=== PATIENT | female | born 1970 | race Caucasian/White ===

== ENCOUNTER 2017-11-19 18:14 | Inpatient (IN) ==
[~2017-11-19 18:14] MED LIST: Aminoglycoside Consult 1 EACH MC ONE
[2017-11-19] MEDS ORDERED: 0.9 % Sodium Chloride 1,000 ML IVC ONE (19:13)
[2017-11-19] MEDS ORDERED: Ondansetron 4 MG/2 ML VIAL IVP ONE (19:13)
[2017-11-19] MEDS ORDERED: Isovue-370 500 ML INFUS..BTL IV ONE (19:14)
[2017-11-19] MEDS ORDERED: Ketorolac 15 MG/ML VIAL IVP ONE (19:17)
--- NOTE | 2017-11-19 19:17 | Emergency Department Note ---
Disposition Clinical Impression: Pelvic pain, Tobacco use, Abscess Osteomyelitis Qualifiers: Osteomyelitis type: unspecified type Osteomyelitis location: unspecified site Qualified Code(s): M86.9 - Osteomyelitis, unspecified Disposition: Admitted As Inpatient Condition: Fair Time of Disposition: 21:55 General Adult HPI - General Chief complaint: ED Abdominal Pain Stated complaint: pelvic pain Time Seen by Provider: 11/19/17 18:29 Source: patient Mode of arrival: ambulatory Limitations: no limitations Nursing Notes Reviewed: Yes Vital Signs Reviewed: Yes - History of Present Illness HPI Narrative: 47 year old female with a history of leukemia status post bone marrow transplant at the [facility] in 2012 as well as history of hip abscess last year presents for evaluation of pelvic pain. Patient states the pain is atraumatic and is been worse over the past 3 days. Patient localized the pain started in the right lower quadrant as well as radiation across her lower abdomen. Patient also notes pelvic instability with walking and ambulation. Patient denies any falls. Patient notes night sweats but no fevers. Patient reports some nausea and vomiting. No change in bowel habits. No dysuria or hematuria. No vaginal bleeding or discharge. Patient states she is post menopausal since her transplant. Patient has not followed up with the [facility] over the past year. Patient is not on any immunosuppressive therapy. Denies chest pain or shortness of breath. Patient has a chronic cough attributed to tobacco use. Patient's been taking ibuprofen to help control the pain. Denies any abdominal surgeries. 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 Pain Scale: 9 - Related Data Home Medications Medication Instructions Recorded Confirmed No Known Home Drugs 11/19/17 11/19/17 Allergies Allergy/AdvReac Type Severity Reaction Status Date / Time No Known Allergies Allergy Verified 11/19/17 21:41 All systems ED: reviewed and negative except as stated. Constitutional: Reports: chills. Denies: fever Respiratory: Reports: cough. Denies: dyspnea Gastrointestinal: Reports: abdominal pain, nausea, vomiting. 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 - Social History Smoking Status: Current every day smoker Smokeless Tobacco Status: No Alcohol use: Reports: none Drug use: Reports: opiates, IV Drug Use, prescription drug abuse Physical Exam - General Limitations: no limitations General appearance: alert, in no apparent distress, anxious - Head Head exam: atraumatic, normocephalic, normal inspection - Eye Eye exam: Present: normal appearance, PERRL, EOMI - ENT ENT exam: normal exam - Neck Neck exam: Present: normal inspection, trachea midline - Chest Chest inspection: Present: normal inspection - Respiratory Respiratory exam: Present: normal lung sounds bilaterally. Absent: respiratory distress - Cardiovascular Cardiovascular exam: Present: regular rate, normal rhythm. Absent: systolic murmur - Abdominal Exam Abdominal exam: Present: soft, Non-Tender. Absent: distention, guarding, rebound - Extremities Exam Extremities exam: Present: normal inspection, other (Age track quiñonez of the upper extremities. No evidence of cellulitis or infection.). Absent: pedal edema - Expanded Lower Extremity Exam Hip/Pelvis exam: Present: normal inspection, full ROM. Absent: tenderness Upper leg exam: Present: normal inspection, full ROM. Absent: tenderness Knee exam: Present: normal inspection. Absent: tenderness Lower leg exam: Present: normal inspection Ankle exam: Present: normal inspection Neurovascular/Tendon exam: Present: normal capillary refill - Back Exam Back exam: Present: normal inspection, full ROM. Absent: tenderness, CVA tenderness (R), CVA tenderness (L), vertebral tenderness - Neurological Exam Neurological exam: Present: alert, oriented X3, CN II-XII intact - Skin Skin exam: Present: warm, dry, intact, normal color Course Course Narrative: Patient is nontoxic-appearing and is presenting with atraumatic hip pain. Patient denies history of recent drug use. Given the patient's history with leukemia and bone marrow transplant with a possible infection in the past the patient will get imaging of the abdomen and pelvis with IV contrast. Patient will also be given symptomatic treatment with IV fluids and antiemetics and pain control. Basic labs be obtained. Disposition pending. Looking back the patient's records it appears the patient did have cellulitis in the past but there was no defined abscess. Patient's been having chronic pain of her hips which appears in the record. - Reevaluation(s) Reevaluation #1: Patient seen and examined. Patient was updated on plan of care. Patient will be admitted to hospital service for further management of her osteomyelitis as well as intramuscular abscess. Time: 21:52 Vital Signs Temperature 98.6 F 11/19/17 18:17 Pulse Rate 112 11/19/17 18:17 Respiratory Rate 18 11/19/17 18:17 Blood Pressure 127/72 11/19/17 18:17 O2 Sat by Pulse Oximetry 98 11/19/17 18:17 Temperature 98.3 F 11/19/17 23:32 Pulse Rate 90 11/19/17 23:32 Respiratory Rate 18 11/19/17 23:32 Blood Pressure 119/69 11/19/17 23:32 O2 Sat by Pulse Oximetry 99 11/19/17 23:32 Oxygen Delivery Oxygen Delivery Room Air Medical Decision Making - MDM Narrative Medical decision making narrative: 47-year-old female present for evaluation of pelvic pain. Patient does have a history of abscess within her pelvis as well as a bone infection. Patient workup in the emergency department is significant for osteomyelitis as well as intramuscular abscess. Patient has had stable vital signs. Normal lactate. Given the patient's osteomyelitis as well as potential abscess patient will be admitted to the hospital service for further evaluation and management. Patient 's pain was addressed in the emergency department. Patient was started on the most appropriate antibiotics. - Lab Data Lab results reviewed: Yes I reviewed the patient's lab results. Result diagrams: 11/20/17 01:18 11/20/17 01:18 Lab Results 11/19/17 11/19/17 11/19/17 Range/Units 19:44 19:44 19:44 WBC 6.5 (4.3-11.1) K/mcL RBC 4.21 (3.82-4.97) M/mcL Hgb 13.1 (11.5-15.4) g/dL Hct 38.5 (35.3-44.9) % MCV 91.4 (83.0-100.0) fL MCH 31.1 (28.0-33.3) pg MCHC 34.0 (31.6-35.5) g/dL RDW 14.2 (11.5-14.5) % Plt Count 231 (140-400) K/mcL MPV 9.0 L (9.4-12.4) fL Immature Gran % 0.3 (0-4) % Seg Neutrophils % 70.7 % Lymphocytes % 19.6 % Monocytes % 6.9 % Eosinophils % 2.0 % Basophils % 0.5 % Neutrophils # 4.6 (1.6-8.9) K/mcL Lymphocytes # 1.3 (0.6-4.6) K/mcL Monocytes # 0.5 (0.0-1.3) K/mcL Eosinophils # 0.1 (0.0-0.6) K/mcL Basophils # 0.0 (0.0-0.2) K/mcL Sodium 132 L (136-145) mEq/L Potassium 4.0 (3.5-5.1) mEq/L Chloride 101 (98-107) mEq/L Carbon Dioxide 25 (23-29) mEq/L BUN 15 (6-20) mg/dL Creatinine 0.78 (0.60-1.20) mg/dL Est GFR ( Amer) > 60 (> 60) Est GFR (Non-Af Amer) > 60 (> 60) BUN/Creatinine Ratio 19 (6-26) Glucose 114 H (70-105) mg/dL Calculated Osmolality 276 L (280-300) Lactic Acid 0.8 (0.5-2.2) mmol/L Calcium 9.7 (8.6-10.3) mg/dL Total Bilirubin 0.7 (0.3-1.0) mg/dL Direct Bilirubin 0.3 H (0.0-0.2) mg/dL Indirect Bilirubin 0.4 (0.0-1.2) mg/dL AST 24 (13-39) Units/L ALT 19 (7-52) Units/L Alkaline Phosphatase 99 (34-104) Units/L Serum Total Protein 8.3 (6.4-8.9) g/dL Albumin 4.2 (3.5-5.7) g/dL Globulin 4.1 H (2.4-3.5) g/dL Albumin/Globulin Ratio 1.0 L (1.1-2.2) Urine Color (Yellow) Urine Clarity (Clear) Urine pH (5.0-8.0) pH Units Ur Specific [place] (1.010-1.025) Urine Protein (Neg-Trace) mg/dL Urine Glucose (UA) (Normal) mg/dL Urine Ketones (Negative) mg/dL Urine Blood (Negative) Urine Nitrite (Negative) Urine Bilirubin (Negative) Urine Urobilinogen (Normal) mg/dL Ur Leukocyte Esterase (Negative) Urine Microscopic RBC (0-3) per hpf Urine Microscopic WBC (0-3) per hpf Ur Squamous Epith Cells (None-Few) per lpf Urine Bacteria (None-Few) per hpf Hyaline Casts (None-Few) per lpf Ur Culture Indicated? (NO) Urine Test (Negative) 11/19/17 11/19/17 Range/Units 19:52 19:52 WBC (4.3-11.1) K/mcL RBC (3.82-4.97) M/mcL Hgb (11.5-15.4) g/dL Hct (35.3-44.9) % MCV (83.0-100.0) fL MCH (28.0-33.3) pg MCHC (31.6-35.5) g/dL RDW (11.5-14.5) % Plt Count (140-400) K/mcL MPV (9.4-12.4) fL Immature Gran % (0-4) % Seg Neutrophils % % Lymphocytes % % Monocytes % % Eosinophils % % Basophils % % Neutrophils # (1.6-8.9) K/mcL Lymphocytes # (0.6-4.6) K/mcL Monocytes # (0.0-1.3) K/mcL Eosinophils # (0.0-0.6) K/mcL Basophils # (0.0-0.2) K/mcL Sodium (136-145) mEq/L Potassium (3.5-5.1) mEq/L Chloride (98-107) mEq/L Carbon Dioxide (23-29) mEq/L BUN (6-20) mg/dL Creatinine (0.60-1.20) mg/dL Est GFR ( Amer) (> 60) Est GFR (Non-Af Amer) (> 60) BUN/Creatinine Ratio (6-26) Glucose (70-105) mg/dL Calculated Osmolality (280-300) Lactic Acid (0.5-2.2) mmol/L Calcium (8.6-10.3) mg/dL Total Bilirubin (0.3-1.0) mg/dL Direct Bilirubin (0.0-0.2) mg/dL Indirect Bilirubin (0.0-1.2) mg/dL AST (13-39) Units/L ALT (7-52) Units/L Alkaline Phosphatase (34-104) Units/L Serum Total Protein (6.4-8.9) g/dL Albumin (3.5-5.7) g/dL Globulin (2.4-3.5) g/dL Albumin/Globulin Ratio (1.1-2.2) Urine Color Dark Yellow (Yellow) Urine Clarity Cloudy A (Clear) Urine pH 6.0 (5.0-8.0) pH Units Ur Specific [place] 1.024 (1.010-1.025) Urine Protein Negative (Neg-Trace) mg/dL Urine Glucose (UA) Normal (Normal) mg/dL Urine Ketones Negative (Negative) mg/dL Urine Blood Negative (Negative) Urine Nitrite Negative (Negative) Urine Bilirubin Small H (Negative) Urine Urobilinogen 2.0 H (Normal) mg/dL Ur Leukocyte Esterase Trace H (Negative) Urine Microscopic RBC 0-3 (0-3) per hpf Urine Microscopic WBC 3-5 H (0-3) per hpf Ur Squamous Epith Cells Many H (None-Few) per lpf Urine Bacteria Few (None-Few) per hpf Hyaline Casts None Seen (None-Few) per lpf Ur Culture Indicated? NO. A (NO) Urine Test Negative (Negative) - Radiology Data Radiology results reviewed: Yes I reviewed the patient's radiology results. Abdomen/Pelvis CT 11/19/17 19:14 IMPRESSION: 1. Findings of osteomyelitis at the pubic symphysis (right and left pubic bones), predominantly right-sided, with associated fluid collection extending to the right pectineus musculature in keeping with intramuscular abscess. 2. Remainder of the CT abdomen and pelvis appears unremarkable. D/ / Watson Friedman / Watson Friedman Interpreting Provider: Watson Friedman S.RashelAZulema - STrae Situation: Demographics Background: Presenting Complaint Assessment: Vital Signs, Course and respsone to treatment, Patient/Family Expectation Recommendation: Barrier(s) to disposition, Recommendation based on pending studies, treatments, or consults S.B.A.R. Report Given to: Dr. Toni Parry Repor Time: 22:12 Attestation Statement - Attestation Attestation: I examined this patient and my medical decision-making was reviewed with the Resident Physician. I agree with the documented findings, disposition and treatment plan as described except to the extent set forth below. Findings consistent with pelvic osteomyelitis. History of bone marrow transplant. Patient will be admitted for treatment of osteomyelitis in the setting of possible intramuscular abscess. IV antibiotics and cultures were obtained and initiated prior to admission.
[2017-11-19 19:58] LABS: Basophils % 0.5 %; Eosinophils # 0.1 K/mcL (0.0-0.6); Hematocrit 38.5 % (35.3-44.9); Hemoglobin 13.1 g/dL (11.5-15.4); Immature Granulocytes % 0.3 % (0-4); Lymphocytes # 1.3 K/mcL (0.6-4.6); Lymphocytes % 19.6 %; Mean Corpuscular Hemoglobin 31.1 pg (28.0-33.3); Mean Corpuscular Volume 91.4 fL (83.0-100.0); Monocytes # 0.5 K/mcL (0.0-1.3); Monocytes % 6.9 %; Neutrophils # 4.6 K/mcL (1.6-8.9); Platelet Count 231 K/mcL (140-400); Red Blood Count 4.21 M/mcL (3.82-4.97); Red Cell Distribution Width 14.2 % (11.5-14.5); Segmented Neutrophils % 70.7 %
[2017-11-19 20:04] LABS: Bilirubin,Urine Small (Negative); Blood,Urine Negative (Negative); Clarity,Urine Cloudy (Clear); Color,Urine Dark Yellow (Yellow); Glucose,Urine (UA) Normal (Normal); Ketones,Urine Negative (Negative); Leukocyte Esterase,Urine Trace (Negative); Nitrite,Urine Negative (Negative); Protein,Urine Negative (Neg-Trace); Specific Gravity,Urine 1.024 (1.010-1.025)
[2017-11-19 20:06] LABS: Bacteria,Urine Few per hpf (None-Few); Hyaline Casts,Urine None Seen per lpf (None-Few); Squamous Epithelial Cell,Urine Many per lpf (None-Few)
[2017-11-19 20:16] LABS: Alanine Aminotransferase 19 Units/L (7-52); Albumin 4.2 g/dL (3.5-5.7); Alkaline Phosphatase 99 Units/L (34-104); Aspartate Amino Transferase 24 Units/L (13-39); BUN/Creatinine Ratio 19 (6-26); Bilirubin,Direct 0.3 mg/dL (0.0-0.2); Bilirubin,Indirect 0.4 mg/dL (0.0-1.2); Bilirubin,Total 0.7 mg/dL (0.3-1.0); Blood Urea Nitrogen 15 mg/dL (6-20); Calcium 9.7 mg/dL (8.6-10.3); Carbon Dioxide 25 mEq/L (23-29); Chloride 101 mEq/L (98-107); Globulin 4.1 g/dL (2.4-3.5); Glucose 114 mg/dL (70-105); Osmolality,Calculated 276 (280-300); Sodium 132 mEq/L (136-145); Total Protein 8.3 g/dL (6.4-8.9); eGFR For African Americans > 60 (> 60); eGFR For Non-African Americans > 60 (> 60)
[2017-11-19 20:18] LABS: RBC,Urine 0-3 per hpf (0-3)
[2017-11-19] MEDS ORDERED: cefTRIAXone 2,000 MG in Water for inj. (sterile) 20 ML IVP ONE (21:34)
[2017-11-19] MEDS ORDERED: *HR* FentaNYL (PF) 100 MCG/2 ML VIAL IVP ONE (21:52)
[2017-11-19] MEDS ORDERED: Nicotine 21 MG PATCH.TD24 TD ONE (21:57)
[2017-11-19] MEDS ORDERED: cefTRIAXone 2,000 MG in Water for inj. (sterile) 20 ML 20 ML IVP ONE (22:00)
--- NOTE | 2017-11-19 22:57 | Internal Med History&Physical ---
Date of Encounter: 11/19/17 Time of Encounter: 22:55 Assessment and Plan (1) Abscess Current visit: Yes Status: Acute Pelvic abscess with osteomyelitis of the pelvis symphysis Was started on vancomycin and Zosyn and consult ID May need surgery/ int RADIOLOGY for drainage (2) Osteomyelitis Current visit: Yes Status: Acute We will consult ID for further recommendation Qualifiers: Osteomyelitis type: unspecified type Osteomyelitis location: unspecified site Qualified Code(s): M86.9 - Osteomyelitis, unspecified (3) Tobacco use Current visit: Yes Status: Chronic (4) Leukemia Current visit: Yes Status: Acute Study post bone marrow transplant Qualifiers: Leukemia type: unspecified Leukemia Active/Remission status: in remission Qualified Code(s): C95.91 - Leukemia, unspecified, in remission (5) HTN (hypertension) Current visit: Yes Status: Chronic Chronic and well controlled Qualifiers: Hypertension type: essential hypertension Qualified Code(s): I10 - Essential (primary) hypertension (6) Seizure Current visit: Yes Status: Acute Internal Medicine - H&P: HPI Chief complaint: pelvic pain fever and chills Admitted From: Emergency Dept Plans for Post Hospital Care: Home History of present illness: Ms. Yeager is a 47 year old female Patient with history of leukemia status post bone marrow transplant 2012, hip abscess last year, asthma, high cholesterol, hypertension, seizure disorder and smoking history. Patient presented emergency room with 3 days of pelvic pain that progressively getting worse with nausea and some vomiting with feeling sweaty and chills. Emergency room CT of the abdomen and pelvis shows pelvic abscess and the possible osteomyelitis patient is admitted for IV antibiotic we will send for blood culture and consult ID. Past Med Surg Social Fam HX - Past Medical History Medical history: arthritis, asthma, cancer, hyperlipidemia, hypertension, seizures, other Psychiatric history: anxiety, depression, other - Past Surgical History Surgical History: cholecystectomy, hysterectomy - Social History Smoking Status: Current every day smoker Smokeless Tobacco Status: No Alcohol use: none Drug use: opiates, IV Drug Use, prescription drug abuse - Family History Mother Adopted: No Living Status: Hx Family Cardiac Disorders: Yes Hx Family Respiratory Disorders: Yes Hx Family Cancer: Yes Hx Family GI Disorders: No Hx Family Endocrine Disorder: No Hx Family Neuromuscular Disorders: No Hx Family Neurologic Disorders: No Hx Family HEENT Disorders: No Hx Family Autoimmune Disorders: No Internal Medicine - H&P: Meds No Known Home Drugs 11/19/17 [History] 3 Allergy/AdvReac Type Severity Reaction Status Date / Time No Known Allergies Allergy Verified 11/19/17 21:41 All Systems PM: A 10-system review of systems was performed and is negative for pertinent findings except as documented above in the HPI. - Constitutional Vitals: Temp Pulse Resp BP Pulse Ox 98.6 F 95 16 142/72 100 11/19/17 18:17 11/19/17 20:41 11/19/17 20:41 11/19/17 20:41 11/19/17 20:41 - Head Head exam: Present: atraumatic, normocephalic - Eye Eye exam: Present: PERRL, conjuntiva pink, sclera anicteric Pupils: Present: PERRL - Neck Neck exam general surgery: Present: supple, trachea midline. Absent: lymphadenopathy - Respiratory Respiratory exam: Present: CTAB. Absent: accessory muscle use, rales, rhonchi, wheezes - Cardiovascular Cardiovascular exam: Present: RRR, +S1, +S2. Absent: diastolic murmur, gallop, rubs, systolic murmur - GI/Abdominal GI/Abdominal exam: Present: normal bowel sounds, soft, no peritoneal signs. Absent: distended, tenderness Internal Med - H&P Results - Labs CBC & Chem 7: 11/19/17 19:44 11/19/17 19:44
[2017-11-19] MEDS ORDERED: traMADol 50 MG TABLET PO PRN (23:01)
[2017-11-19] MEDS ORDERED: Acetaminophen 325 MG TABLET PO PRN (23:01)
[2017-11-19] MEDS ORDERED: Naloxone 0.4 MG/ML INJ IVP PRN (23:01)
[2017-11-19] MEDS ORDERED: 0.9 % Sodium Chloride 1,000 ML IVC SCH (23:15)
[2017-11-20] MEDS: Piperacillin/Tazobactam 3.375 GM in 0.9 % Sodium Chloride Mini Bag 100 ML IVPB SCH ×2 (00:25→07:35)
[2017-11-20 01:50] LABS: Hematocrit 34.4 % (35.3-44.9); Mean Corpuscular HGB Conc 33.4 g/dL (31.6-35.5); Mean Corpuscular Volume 89.8 fL (83.0-100.0); Mean Platelet Volume 9.4 fL (9.4-12.4); Platelet Count 208 K/mcL (140-400); Red Blood Count 3.83 M/mcL (3.82-4.97); Red Cell Distribution Width 14.4 % (11.5-14.5)
[2017-11-20 01:51] LABS: Hemoglobin 11.5 g/dL (11.5-15.4)
[2017-11-20 01:55] LABS: Alanine Aminotransferase 16 Units/L (7-52); Albumin 3.6 g/dL (3.5-5.7); Alkaline Phosphatase 89 Units/L (34-104); Aspartate Amino Transferase 20 Units/L (13-39); BUN/Creatinine Ratio 18 (6-26); Bilirubin,Total 0.4 mg/dL (0.3-1.0); Blood Urea Nitrogen 15 mg/dL (6-20); Calcium 8.9 mg/dL (8.6-10.3); Carbon Dioxide 25 mEq/L (23-29); Chloride 106 mEq/L (98-107); Cholesterol 110 mg/dL (< 200); Globulin 3.5 g/dL (2.4-3.5); Glucose 94 mg/dL (70-105); HDL Cholesterol 54 mg/dL (40-59); LDL Cholesterol,Calculated 43 mg/dL (0-99); Magnesium 2.1 mg/dL (1.6-2.6); Osmolality,Calculated 283 (280-300); Potassium 4.8 mEq/L (3.5-5.1); Sodium 136 mEq/L (136-145); Total Protein 7.1 g/dL (6.4-8.9); Triglycerides 66 mg/dL (< 150); eGFR For African Americans > 60 (> 60); eGFR For Non-African Americans > 60 (> 60)
[2017-11-20] MEDS ORDERED: *HR* Enoxaparin 40 MG/0.4 ML SYRINGE SQ SCH (06:00)
[2017-11-20 07:23] VITALS: BP 123/78
[2017-11-20] MEDS ORDERED: Ketorolac 30 MG/ML VIAL IVP PRN (10:14)
--- NOTE | 2017-11-20 16:35 | Discharge Summary ---
Orders not resulted at time of discharge: Pending orders 11/20/17 10:22 Drug Screen, Urine [UCHEM] Routine Date of Encounter: 11/20/17 Time of Encounter: 11:00 - Discharge Diagnosis (1) Abscess Priority: Primary Status: Acute (2) Osteomyelitis Priority: Primary Status: Acute Qualifiers: Osteomyelitis type: unspecified type Osteomyelitis location: unspecified site Qualified Code(s): M86.9 - Osteomyelitis, unspecified Hospital course: Patient is a 47-year-old female with past medical history significant for leukemia status post bone marrow transplant 2012, hip abscess last year, asthma , high cholesterol, hypertension, seizure disorder and smoking history who presented to the ER on 11/19/17 due to pelvic pain. She reported of a 3 day worsening of pelvic pain in addition to nausea/vomiting and fever/chills. In the emergency room, CT of the abdomen and pelvis showed pelvic abscess and concerns for osteomyelitis so patient was admitted for IV antibiotics and ID consulted. During patients hospital stay, she admits to IV drug use and used IV heroin on the night prior to this admission and feels that she is withdrawing. In addition, patient also states that she needs to take care of her dad and is requesting to leave AGAINST MEDICAL ADVICE. The risk and benefits were explained to patient about not treating her osteomyelitis with IV antibiotics and patient verbalized understanding. Patient left AGAINST MEDICAL ADVICE. - Time Spent with Patient Total time spent providing and/or coordinating discharge services: Greater than 30 minutes - Discharge Medications Home Medications: No Known Home Drugs 11/19/17 [History] Allergies/Adverse Reactions: 3 Allergy/AdvReac Type Severity Reaction Status Date / Time No Known Allergies Allergy Verified 11/19/17 21:41 Date of admission: 11/19/17 23:01 Primary care physician: Radha Osullivan CNP Consults: 11/20/17 09:30 Consult to Infectious Diseases [CONS] Routine Consulting Provider: Infectious Disease Perri Reason for Consult: Osteomyelitis of ramus of pelvis with possible abscess Time Notified: 09:30 Call Completed: Yes - Constitutional Vitals: Temp Pulse Resp BP Pulse Ox 98 F 96 16 123/78 96 11/20/17 06:35 11/20/17 06:35 11/20/17 06:35 11/20/17 06:35 11/20/17 06:35 General appearance: Present: A&O X 3, answers questions appropriately. Absent: no acute distress - Patient Status Disposition: Left Against Medical Advice Condition: Fair - Discharge Instructions Follow Up With: Radha Osullivan CNP [Primary Care Provider] -
== END 2017-11-20 11:10 | disposition left against medical advice (07) | DRG 531 ==
LOC: 3NENU 18:14 → EMEROO 18:14 → SUATTDRO 23:01 → 3NENU 23:17
PROVIDERS: ADMIT Internal Medicine; ATTEND Hospitalist

== ENCOUNTER 2017-12-06 17:57 | Inpatient (IN) ==
[2017-12-06] MEDS ORDERED: Ondansetron 4 MG/2 ML VIAL IVP PRN (20:44)
[2017-12-06] MEDS ORDERED: Naloxone 0.4 MG/ML INJ IVP PRN (20:44)
--- NOTE | 2017-12-06 21:05 | Internal Med History&Physical ---
Date of Encounter: 12/06/17 Time of Encounter: 19:30 Internal Medicine - H&P: HPI Chief complaint: pelvic pain Admitted From: Hospital to Hospital Transfer Plans for Post Hospital Care: [facility] History of present illness: Ms. 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 She was hospitalized about 2 weeks ago and signed out AGAINST MEDICAL ADVICE shortly after admission. She presents to the hospital again with same complaints of severe pelvic pain and need for IV antibiotics. 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 She responded well to treatment and was started on methadone while at the usp. However, she was unable to find a PCP and was unable to find a clinic to prescribe methadone. Once her methadone ran out, she resorted to drug use on the street to alleviate her pain. She has been using heroin on an almost daily basis along with Subutex that she buys on the street. She also has a history of leukemia and underwent bone marrow transplant in 2012. Her initial diagnosis of septic arthritis of her symphysis pubis was at [facility] this past fall. It was during that admission that she was discharged to the [facility] in [place], [place] for ongoing care. Patient appears to be in obvious pain, especially if she ambulates and moves around causing pain in her pelvis. We had a [id number] talk about her drug addiction and the need to treat her pain without contributing to her addiction. I told her for now I would use a combination of anti-inflammatory medications along with PRN Percocet for breakthrough pain. Once we can achieve pain control , we need to wean down her narcotic use. Eventually she needs to get established in a treatment program where she can be treated with either methadone or Subutex. Her biggest issue now is this symphysis pubis septic arthritis and need for ongoing IV antibiotics. She will most likely need ECF upon discharge for ongoing treatment and care. I encouraged her to comply with hospital staff and really discouraged her AMA plans in the past. She does not plan leave to AMA but requests pain control. I informed her we will do our best we can but that we cannot contribute to her addiction. I hope that we can achieve adequate pain control with above treatment measures. Unfortunately, we are unable to provide IV narcotics due to limited supply and her drug history. I discussed with the patient at length, and she voiced understanding. Past Med Surg Social Fam HX - Past Medical History Attestation: Yes The following information was validated with the patient. Source: patient, old records reviewed Medical history: arthritis, asthma, cancer (leukemia; S/P BMT at [facility] 2013), hyperlipidemia, hypertension, seizures, other Psychiatric history: anxiety, depression, other - Past Surgical History Surgical History: cholecystectomy, hysterectomy, transplant - Social History Smoking Status: Current every day smoker Smokeless Tobacco Status: No Alcohol use: rarely Drug use: opiates, IV Drug Use, prescription drug abuse Current living situation: Home, With Family Activity Level: Independent ambulation Recent Out of Country Travel Within the Last 8 Weeks: No - Family History Mother Adopted: No Living Status: Hx Family Cardiac Disorders: Yes Hx Family Respiratory Disorders: Yes Hx Family Cancer: Yes Hx Family GI Disorders: No Hx Family Endocrine Disorder: No Hx Family Neuromuscular Disorders: No Hx Family Neurologic Disorders: No Hx Family HEENT Disorders: No Hx Family Autoimmune Disorders: No Father Living Status: Still Living Internal Medicine - H&P: Meds No Known Home Drugs 11/19/17 [History] 3 Allergy/AdvReac Type Severity Reaction Status Date / Time No Known Allergies Allergy Verified 12/06/17 13:15 - Constitutional Constitutional: no chills, no fever(s), no night sweats - EENT Eyes: no blurry vision, no change in vision Ears: no ear pain, no tinnitus Nose, mouth and throat: no nasal congestion, no nasal discharge, no sinus pressure, no sore throat - Cardiovascular Cardiovascular ROS IM: no chest pain, no diaphoresis, no dyspnea, no dyspnea on exertion - Respiratory Respiratory: no cough, no dyspnea, no dyspnea on exertion, no chest congestion, no excessive phlegm production, no change in phlegm color - Gastrointestinal Gastrointestinal: no abdominal pain, no diarrhea, no hematemesis, no hematochezia, no melena, no nausea, no vomiting - Genitourinary Genitourinary: pelvic pain, no dysuria, no flank pain, no hematuria - Musculoskeletal Musculoskeletal ROS IM: no arthralgias, no back pain, no joint swelling Additional comments: pelvic pain, especially with ambulation - Integumentary Integumentary IM: no rash, no jaundice - Neurological Neurological ROS: no convulsions, no dizziness, no focal weakness, no frequent falls, no headache(s) - Psychiatric Psychiatric: anxiety, no depression - Endocrine Endocrine IM: no polydipsia, no polyuria - Hematologic/Lymphatic Hematologic/Lymphatic: no easy bruising, no lymphadenopathy - Allergic/Immunologic Allergic/Immunologic: no wheezing, no GI upset with certain foods - Constitutional Vitals: Temp Pulse Resp BP Pulse Ox 97.8 F 87 14 138/89 100 12/06/17 19:13 12/06/17 19:13 12/06/17 19:13 12/06/17 19:13 12/06/17 19:13 General appearance: Present: cooperative, mild distress, A&O X 3, pleasant, answers questions appropriately - Head Head exam: Present: atraumatic, normal inspection - Eye Eye exam: Present: EOMI, normal appearance, PERRL. Absent: scleral icterus Pupils: Present: normal accommodation - ENT ENT exam: Present: mucous membranes dry, normal exam, normal oropharynx - Neck Neck exam general surgery: Present: full ROM, supple. Absent: tenderness, nuchal rigidity, thyromegaly - Respiratory Respiratory exam: Present: CTAB. Absent: chest wall tenderness, rales, respiratory distress, rhonchi, wheezes - Cardiovascular Cardiovascular exam: Present: RRR, +S1, +S2, systolic murmur (grade 1-2 ). Absent: diastolic murmur - GI/Abdominal GI/Abdominal exam: Present: soft, tenderness (suprapubic). Absent: guarding, hepatomegaly, mass, rebound, splenomegaly - Extremities Exam Extremities exam: Present: full ROM, normal capillary refill, warm, radial pulses palpable and symmetrical. Absent: calf tenderness, joint swelling, pedal edema, tenderness - Back Exam Back exam: Present: normal inspection. Absent: CVA tenderness (L), CVA tenderness (R) - Neurological Exam Neurological exam: Present: alert, CN II-XII intact, oriented X3, no focal deficits - Psychiatric Psychiatric exam: Present: anxious. Absent: depressed, homicidal ideation, suicidal ideation - Skin Skin exam: Present: dry, warm. Absent: rash Internal Med - H&P Results - Labs Labs: I reviewed the labs from [place] and they include the following: WBC 7.0 Hemoglobin 11.1 Hematocrit 32.4 Platelet 212 Differential normal Sodium 137 Potassium 3.5 Chloride 105 Carbon dioxide 27 BUN 14 Creatinine 0.75 Glucose 69 Urine drug screen positive for opiates and amphetamines - Diagnostic Studies CT scan - abdomen Status: image reviewed by me (Report reviewed as well -- septic arthritis of symphysis pubis; abscess on pectineus muscle) - Assessment and plan (1) Septic arthritis of pelvic region Current Visit: Yes Status: Acute Assessment and plan: 1. Will order blood cultures. 2. ECHO ordered to evaluate for vegetations given murmur on exam. 3. IV Vancomycin and Zosyn for now. 4. Consult ID on Saturday when available; not available over the weekend. 5. Will need PICC line and nursing home IV antibiotics -- likely at ECF given her IV drug use. 6. Pain control with oral NSAIDS and Percocet for breakthrough pain. (2) Illicit drug use Current Visit: Yes Status: Acute Assessment and plan: 1. Social work consult. 2. Pain control regimen detailed with patient as above. 3. She will need to establish with Subutex or Methadone clinic in the near future. 4. Likely referral back to same ECF in [place] for ongoing IV antibiotics and treatment for her addiction. Encouraged patient to discuss with Classified Advertising Manager. (3) Abscess Current Visit: Yes Status: Acute Assessment and plan: 1. Per CT imaging, abscess has improved in size. 2. Continue IV antibiotics; may need surgery consult if fails to improve or worsens. (4) DVT prophylaxis Current Visit: No Status: Acute Assessment and plan: 1. Heparin SQ.
[2017-12-06] MEDS: Ibuprofen 400 MG TABLET PO PRN (21:34)
[2017-12-06] MEDS: 0.9 % Sodium Chloride w KCl 20 MEQ/1,000 ML MLS IVC SCH (21:34)
[2017-12-06] MEDS: *HR* OxyCODONE/APAP 7.5/325 TABLET PO PRN (21:34)
[2017-12-07] MEDS: Piperacillin/Tazobactam 3.375 GM in 0.9 % Sodium Chloride Mini Bag 100 ML IVPB SCH ×2 (00:16→07:46)
[2017-12-07 03:06] LABS: Clarity,Urine Clear (Clear); Color,Urine Yellow (Yellow); Glucose,Urine (UA) Normal (Normal)
[2017-12-07 03:07] LABS: Bilirubin,Urine Negative (Negative); Blood,Urine Negative (Negative); Ketones,Urine Negative (Negative); Leukocyte Esterase,Urine Negative (Negative); Nitrite,Urine Negative (Negative); Protein,Urine Negative (Neg-Trace); Specific Gravity,Urine 1.018 (1.010-1.025); Urobilinogen,Urine Normal (Normal)
[2017-12-07] MEDS: *HR* OxyCODONE/APAP 7.5/325 TABLET PO PRN (03:34)
[2017-12-07 05:29] LABS: Basophils # 0.1 K/mcL (0.0-0.2); Basophils % 1.2 %; Eosinophils # 0.2 K/mcL (0.0-0.6); Eosinophils % 4.3 %; Hematocrit 29.1 % (35.3-44.9); Immature Granulocytes % 0.4 % (0-4); Lymphocytes # 1.6 K/mcL (0.6-4.6); Lymphocytes % 32.1 %; Mean Corpuscular HGB Conc 34.4 g/dL (31.6-35.5); Mean Corpuscular Hemoglobin 31.3 pg (28.0-33.3); Mean Corpuscular Volume 91.2 fL (83.0-100.0); Mean Platelet Volume 8.8 fL (9.4-12.4); Monocytes # 0.6 K/mcL (0.0-1.3); Monocytes % 12.1 %; Neutrophils # 2.4 K/mcL (1.6-8.9); Platelet Count 186 K/mcL (140-400); Red Blood Count 3.19 M/mcL (3.82-4.97); Red Cell Distribution Width 13.5 % (11.5-14.5); Segmented Neutrophils % 49.9 %
[2017-12-07 05:46] LABS: Alanine Aminotransferase 11 Units/L (7-52); Albumin 3.2 g/dL (3.5-5.7); Alkaline Phosphatase 71 Units/L (34-104); Aspartate Amino Transferase 18 Units/L (13-39); BUN/Creatinine Ratio 16 (6-26); Bilirubin,Total 0.3 mg/dL (0.3-1.0); Blood Urea Nitrogen 12 mg/dL (6-20); Carbon Dioxide 25 mEq/L (23-29); Chloride 109 mEq/L (98-107); Globulin 3.1 g/dL (2.4-3.5); Glucose 116 mg/dL (70-105); Magnesium 1.8 mg/dL (1.6-2.6); Osmolality,Calculated 289 (280-300); Potassium 3.7 mEq/L (3.5-5.1); Sodium 139 mEq/L (136-145); Total Protein 6.3 g/dL (6.4-8.9); eGFR For African Americans > 60 (> 60); eGFR For Non-African Americans > 60 (> 60)
[2017-12-07 05:56] LABS: Prothrombin Time 10.9 Seconds (9.4-12.1)
[2017-12-07 05:59] LABS: Activated Partial Thrombo Time 30.8 Seconds (26.0-36.0)
[2017-12-07] MEDS ORDERED: *HR* Heparin 5,000 UNIT/ML VIAL SQ SCH (06:00)
[2017-12-07] MEDS: *HR* OxyCODONE/APAP 10/325 TABLET PO PRN ×2 (06:10→12:07)
[2017-12-07] MEDS: 0.9 % Sodium Chloride w KCl 20 MEQ/1,000 ML MLS IVC SCH (09:53)
[2017-12-07] MEDS: Ibuprofen 400 MG TABLET PO PRN (09:59)
[2017-12-07 11:27] VITALS: BP 153/82
--- NOTE | 2017-12-07 12:04 | Internal Med Progress Note ---
Date of Encounter: 12/07/17 Time of Encounter: 12:00 - Assessment and plan (1) Septic arthritis of pelvic region Current Visit: Yes Status: Inactive Assessment and plan: Pubic symphysis septic arthritis and intramuscular abscess in the right pectineus IV Vancomycin and Zosyn for now. Consult ID on Saturday when available, consider surgery consult versus IR abscess draining/joint bone biopsy to culture Will need PICC line and chcf IV antibiotics -- likely at [facility] given her IV drug use. Start meloxicam and Percocet for breakthrough pain. Echocardiogram showed an ejection fraction of 60-65%, no vegetations. CT scan showed:Probable septic arthritis pubic symphysis and intramuscular abscess right pectineus decreased in size appears smaller now measuring 25 x 25 mm (2) Abscess Current Visit: Yes Status: Acute Assessment and plan: 1. Per CT imaging, abscess has improved in size. 2. Continue IV antibiotics; may need surgery consult if fails to improve or worsens. (3) Illicit drug use Current Visit: Yes Status: Acute Assessment and plan: 1. Social work consulted. She will need to establish with Subutex or Methadone clinic in the near future. Likely referral back to same [facility] in [place] for ongoing IV antibiotics and treatment for her addiction. Encouraged patient to discuss with Research Leader. (4) DVT prophylaxis Current Visit: No Status: Acute Assessment and plan: 1. Heparin SQ. (5) Anxiety Current Visit: Yes Status: Acute Assessment and plan: Start hydroxyzine (6) Leukemia Current Visit: No Status: Acute Assessment and plan: History of leukemia status post bone marrow transplant Qualifiers: Leukemia type: unspecified Leukemia Active/Remission status: in remission Qualified Code(s): C95.91 - Leukemia, unspecified, in remission (7) Tobacco use Current Visit: No Status: Chronic Assessment and plan: Smoking cessation counseling, nicotine patch - Time Spent With Patient Total time spent is greater than 50% in coordination of care (as documented) at patient's floor/unit and/or counseling patient: - Subjective Interval history: Complains of severe anxiety, pain in her pelvic area, denies any chest pain or shortness of breath, no abdominal pain or dysuria - Constitutional Vitals: Temp Pulse Resp BP Pulse Ox 98.0 F 71 16 153/82 100 12/07/17 11:26 12/07/17 11:26 12/07/17 11:26 12/07/17 11:26 12/07/17 11:26 General appearance: Present: cooperative, mild distress, A&O X 3, pleasant, answers questions appropriately - Head Head exam: Present: atraumatic, normocephalic - Eye Eye exam: Present: PERRL, conjuntiva pink, sclera anicteric Pupils: Present: PERRL - Neck Neck exam general surgery: Present: supple, trachea midline. Absent: lymphadenopathy - Respiratory Respiratory exam: Present: CTAB. Absent: accessory muscle use, rales, rhonchi, wheezes - Cardiovascular Cardiovascular exam: Present: RRR, +S1, +S2. Absent: diastolic murmur, gallop, rubs, systolic murmur - GI/Abdominal GI/Abdominal exam: Present: normal bowel sounds, soft, no peritoneal signs. Absent: distended, tenderness - Extremities Exam Extremities exam: Present: warm, radial pulses palpable and symmetrical. Absent : calf tenderness, cyanotic, pedal edema - Neurological Exam Neurological exam: Present: CN II-XII intact, oriented X3, no focal deficits. Absent: pronater drift, facial droop, speech deficit - Skin Skin exam: Present: dry, intact Internal Medicine: Result - Labs CBC & Chem 7: 12/07/17 04:00 12/07/17 04:00 Labs: Short CBC 12/07/17 Range/Units 04:00 WBC 4.9 (4.3-11.1) K/mcL Hgb 10.0 L (11.5-15.4) g/dL Hct 29.1 L (35.3-44.9) % Plt Count 186 (140-400) K/mcL Neutrophils # 2.4 (1.6-8.9) K/mcL BMP 12/07/17 04:00 Sodium 139 Potassium 3.7 Chloride 109 H Carbon Dioxide 25 BUN 12 Creatinine 0.74 Glucose 116 H Calcium 9.0 Cardiac Enzymes 12/07/17 Range/Units 08:13 Troponin I < 0.03 (< 0.04) ng/mL Liver Function 12/07/17 Range/Units 04:00 Total Bilirubin 0.3 (0.3-1.0) mg/dL AST 18 (13-39) Units/L ALT 11 (7-52) Units/L Alkaline Phosphatase 71 (34-104) Units/L Albumin 3.2 L (3.5-5.7) g/dL Urine 12/07/17 Range/Units 02:20 Urine Color Yellow (Yellow) Urine Clarity Clear (Clear) Urine pH 7.0 (5.0-8.0) pH Units Ur Specific [place] 1.018 (1.010-1.025) Urine Protein Negative (Neg-Trace) mg/dL Urine Glucose (UA) Normal (Normal) mg/dL - ABG Interpretation ABG results: PT/INR, D-dimer PT 10.9 Seconds (9.4-12.1) 12/07/17 04:00 - Impressions Impressions Echocardiogram 12/06/17 20:44 Impressions: LVEF 60-65%. Normal left ventricular diastolic function. No pulmonary hypertension. No significant valvular dysfunction. Left Ventricular Wall Motion: Rest Echo Findings All wall segments showed normal motion. Findings: Study Quality * Technically adequate exam. Right Ventricle * Normal right ventricular structure and function. Right Atrium * Normal right atrial size. Aortic Valve * Trileaflet aortic valve with normal function. Mitral Valve * Normal mitral valve structure and function. Interatrial Septum * No evidence of PFO by color Doppler. Aorta * Normally sized aortic root. Pericardium * The pericardium appears normal. ECG Findings * Normal sinus rhythm. Left Ventricle * LVEF 60-65%. * Normal left ventricular diastolic function. Tricuspid Valve * No tricuspid stenosis. * Trace tricuspid regurgitation. * Estimated RVSP is 29 mmHg. * Estimated RA pressure is 0-5 mmHg. * No pulmonary hypertension. IVC * Normal IVC dimensions and inspiratory collapse. Left Atrium * Mildly dilated left atrium. Consult Discharge Plan - Plan Referrals: Radha Osullivan, FABIO [Primary Care Provider] -
[2017-12-07] MEDS ORDERED: Nicotine 21 MG PATCH.TD24 TD SCH (12:15)
[2017-12-07] MEDS ORDERED: Aminoglycoside Consult 1 EACH MC ONE (12:45)
--- NOTE | 2017-12-07 16:01 | Discharge Summary ---
Orders not resulted at time of discharge: Pending orders 12/07/17 07:54 ECG 12 lead ECG [ECG] Stat Date of Encounter: 12/07/17 Time of Encounter: 15:38 - Discharge Diagnosis (1) Septic arthritis of pelvic region Priority: Primary Status: Inactive Assessment and Plan: Pubic symphysis septic arthritis and intramuscular abscess in the right pectineus (2) Abscess Priority: Primary Status: Acute Assessment and Plan: 1. Per CT imaging, abscess has improved in size. (3) Illicit drug use Priority: Secondary Status: Acute (4) DVT prophylaxis Priority: Secondary Status: Acute (5) Anxiety Priority: Secondary Status: Acute (6) Leukemia Priority: Secondary Status: Acute Assessment and Plan: History of leukemia status post bone marrow transplant Qualifiers: Leukemia type: unspecified Leukemia Active/Remission status: in remission Qualified Code(s): C95.91 - Leukemia, unspecified, in remission (7) Tobacco use Priority: Secondary Status: Chronic Hospital course: Ms. Yeager is a 47 year old female with a past medical history of septic arthritis from the pubic symphysis, seizures, hyperlipidemia, hypertension, asthma, depression, anxiety abscess, IV drug abuse, polysubstance abuse, tobacco abuse, leukemia status post bone marrow transplant who presented in transferred from [facility] ER for concerns of septic arthritis of her symphysis pubis and an intramuscular abscess of her right pectineus muscle. She was hospitalized about 2 weeks ago and signed out AGAINST MEDICAL ADVICE shortly after admission. She presented to the hospital again with same complaints of severe pelvic pain and need for IV antibiotics. 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 She responded well to treatment and was started on methadone while at the skilled nursing. However, she was unable to find a PCP and was unable to find a clinic to prescribe methadone. Once her methadone ran out, she resorted to drug use on the street to alleviate her pain. She has been using heroin on an almost daily basis along with Subutex that she buys on the street. She also has a history of leukemia and underwent bone marrow transplant in 2012. Her initial diagnosis of septic arthritis of her symphysis pubis was at [facility] this past fall. It was during that admission that she was discharged to the [facility] in [place], [place] for ongoing care. IV Vancomycin and Zosyn were started. Was offered to Consult ID when available and surgery consult versus IR abscess draining/joint bone biopsy to culture Was made aware that she would need a PICC line and lard renderer IV antibiotics - - likely at an [facility] given her IV drug use. Started meloxicam and Percocet too control the pain, offered her hydroxyzine to control anxiety. Echocardiogram showed an ejection fraction of 60-65%, no vegetations. CT scan showed:Probable septic arthritis pubic symphysis and intramuscular abscess right pectineus decreased in size appears smaller now measuring 25 x 25 mm The patient became very anxious and despite having received doses of oxycodone/ Percocet she mentioned to the nurse that she could not take it anymore and she wanted to leave the hospital. Earlier this morning I had a long discussion with her explaining the severity of her disease and the need of IV antibiotics, risks of were explained. The patient ended up leaving AGAINST MEDICAL ADVICE before I could get to the floor again as she did not want to wait for me. Time spent discussing smoking cessation with patient: 3 to 10 minutes - Time Spent with Patient Total time spent providing and/or coordinating discharge services: Greater than 30 minutes (40 min) - Discharge Medications Home Medications: No Known Home Drugs 11/19/17 [History] Allergies/Adverse Reactions: 3 Allergy/AdvReac Type Severity Reaction Status Date / Time No Known Allergies Allergy Verified 12/07/17 11:14 Date of admission: 12/06/17 20:44 Primary care physician: Radha Osullivan CNP Consults: 12/06/17 20:41 Consult to Special Tester [CONS] Routine Reason for SW Consult: Possible need for IV antibiotic therapy upon discharge. - Constitutional Vitals: Temp Pulse Resp BP Pulse Ox 98.0 F 71 16 153/82 100 12/07/17 11:26 12/07/17 11:26 12/07/17 11:26 12/07/17 11:26 12/07/17 11:26 General appearance: Present: cooperative, mild distress, A&O X 3, pleasant, answers questions appropriately Exam: - Head Head exam: Present: atraumatic, normocephalic - Eye Eye exam: Present: PERRL, conjuntiva pink, sclera anicteric Pupils: Present: PERRL - Neck Neck exam general surgery: Present: supple, trachea midline. Absent: lymphadenopathy - Respiratory Respiratory exam: Present: CTAB. Absent: accessory muscle use, rales, rhonchi, wheezes - Cardiovascular Cardiovascular exam: Present: RRR, +S1, +S2. Absent: diastolic murmur, gallop, rubs, systolic murmur - GI/Abdominal GI/Abdominal exam: Present: normal bowel sounds, soft, no peritoneal signs. Absent: distended, tenderness - Extremities Exam Extremities exam: Present: warm, radial pulses palpable and symmetrical. Absent : calf tenderness, cyanotic, pedal edema - Neurological Exam Neurological exam: Present: CN II-XII intact, oriented X3, no focal deficits. Absent: pronater drift, facial droop, speech deficit - Skin Skin exam: Present: dry, intact - Patient Status Disposition: Left Against Medical Advice - Discharge Instructions Follow Up With: Radha Osullivan DOLL SURGEON [Primary Care Provider] -
--- NOTE | 2017-12-09 13:12 | Electrocardiograph Report ---
[address] [place], [place] [address] Test Date: 2017-12-07 Pat Name: Cristiane Yeager Department: 114 Room: [facility] Gender: F Career Services Assistant: : 1970 Requested By: Chet Chun Order Number: [id number] Reading MD: Familia Aguero Measurements Intervals [place] Rate: 61 P: 31 [place]: 135 QRS: 57 QRSD: 79 T: 52 QT: 437 QTc: 439 Interpretive Statements SINUS RHYTHM Electronically Signed On 12-09-2017 9:05:45 EDT by Familia Aguero
== END 2017-12-07 12:46 | disposition left against medical advice (07) | DRG 344 ==
LOC: 3NENU
PROVIDERS: ADMIT Nurse Practitioner Family; ATTEND Nurse Practitioner Family

== ENCOUNTER 2021-12-06 21:57 | Inpatient (IN) ==
[2021-12-06 23:16] LABS: Basophils % 0.5 %; Eosinophils # 0.2 K/mcL (0.0-0.6); Eosinophils % 2.8 %; Hematocrit 36.3 % (35.3-44.9); Hemoglobin 12.4 g/dL (11.5-15.4); Immature Granulocytes % 0.5 % (0-4); Lymphocytes # 2.4 K/mcL (0.6-4.6); Lymphocytes % 29.8 %; Mean Corpuscular HGB Conc 34.2 g/dL (31.6-35.5); Mean Corpuscular Hemoglobin 31.2 pg (28.0-33.3); Mean Corpuscular Volume 91.2 fL (83.0-100.0); Mean Platelet Volume 9.3 fL (9.4-12.4); Monocytes # 0.7 K/mcL (0.0-1.3); Monocytes % 8.4 %; Neutrophils # 4.7 K/mcL (1.6-8.9); Platelet Count 215 K/mcL (140-400); Red Blood Count 3.98 M/mcL (3.82-4.97); Red Cell Distribution Width 13.6 % (11.5-14.5); White Blood Count 8.1 K/mcL (4.3-11.1)
[2021-12-06 23:30] LABS: BUN/Creatinine Ratio 14 (6-26); Blood Urea Nitrogen 15 mg/dL (6-20); Calcium 9.3 mg/dL (8.6-10.3); Carbon Dioxide 22 mEq/L (23-29); Chloride 107 mEq/L (98-107); Glucose 105 mg/dL (70-105); Osmolality,Calculated 287 (280-300); Sodium 138 mEq/L (136-145); eGFR For African Americans > 60 (> 60); eGFR For Non-African Americans 54 (> 60)
[2021-12-07] MEDS ORDERED: Ketorolac 30 MG/ML VIAL IM ONE (00:30)
[2021-12-07] MEDS ORDERED: Isovue-370 500 ML BOTTLE IVP ONE (00:31)
[2021-12-07] MEDS ORDERED: Ketorolac 30 MG/ML VIAL IVP ONE (02:28)
[2021-12-07 04:01] LABS: Adenovirus Not Detected (Not Detect); Bordetella Pertussis Not Detected (Not Detect); Chlamydophila pneumoniae Not Detected (Not Detect); Coronavirus 229E Not Detected (Not Detect); Coronavirus HKU1 Not Detected (Not Detect); Coronavirus NL63 Not Detected (Not Detect); Coronavirus OC43 Not Detected (Not Detect); Human Metapneumovirus Not Detected (Not Detect); Human Rhinovirus/Enterovirus Not Detected (Not Detect); Influenza A Subtype 2009 H1 Not Detected (Not Detect); Influenza B Not Detected (Not Detect); Mycoplasma pneumoniae Not Detected (Not Detect); Parainfluenza Virus 1 Not Detected (Not Detect); Parainfluenza Virus 2 Not Detected (Not Detect); Parainfluenza Virus 3 Not Detected (Not Detect); Parainfluenza Virus 4 Not Detected (Not Detect); Respiratory Syncytial Virus Not Detected (Not Detect); SARS-CoV-2 Not Detected (Not Detect)
[2021-12-07] MEDS ORDERED: Gadolinium Contrast Agent (WT Based) IV PRN ×2 (05:19→05:51)
[2021-12-07] MEDS ORDERED: *HR* FentaNYL (PF) 100 MCG/2 ML VIAL IVP ONE (05:21)
[2021-12-07] MEDS ORDERED: *HR* LORazepam 2 MG/ML VIAL IVP ONE (06:59)
[2021-12-07] MEDS ORDERED: diazePAM 10 MG/2 ML SYRINGE IM ONE (09:20)
[2021-12-07] MEDS ORDERED: diazePAM 10 MG/2 ML SYRINGE IVP STA (09:20)
[2021-12-07] MEDS ORDERED: GADOBUTROL 30 MMOL/30 ML VIAL IVP ONE (10:34)
[2021-12-07] MEDS ORDERED: *HR* HYDROcodone/Acet 5/325 mg TABLET PO PRN (13:19)
[2021-12-07] MEDS ORDERED: *HR* HYDROmorphone 2 MG/ML SYRINGE IVP PRN (13:20)
[2021-12-07] MEDS: Nicotine 21 MG PATCH.TD24 TD SCH (18:14)
[2021-12-07] MEDS: Gabapentin 300 MG CAPSULE PO SCH (19:57)
[2021-12-07] MEDS: *HR* HYDROmorphone (PF) 1 MG/ML SYRINGE IVP PRN (19:58)
[2021-12-07] MEDS: *HR* Buprenorphine HCl 8 MG TAB.SUBL SL SCH (20:05)
[2021-12-07] MEDS ORDERED: Naloxone 0.4 MG/ML INJ IVP PRN (20:42)
[2021-12-07] MEDS ORDERED: Melatonin 3 MG TABLET PO PRN (20:42)
[2021-12-07] MEDS ORDERED: MOM Conc 10 ML UD.LIQ PO PRN (20:42)
[2021-12-07] MEDS ORDERED: Ondansetron 4 MG/2 ML VIAL IVP PRN (20:44)
[2021-12-07] MEDS ORDERED: Mirtazapine 15 MG TABLET PO SCH (21:00)
[2021-12-08] MEDS: *HR* HYDROmorphone (PF) 1 MG/ML SYRINGE IVP PRN (05:47)
[2021-12-08] MEDS ORDERED: *HR* Heparin 5,000 UNIT/ML VIAL SQ SCH (06:00)
[2021-12-08] MEDS ORDERED: ARIPiprazole 10 MG TABLET PO SCH (09:00)
[2021-12-08] MEDS ORDERED: lisinopriL 20 MG TABLET PO SCH (09:00)
[2021-12-08] MEDS ORDERED: FLUoxetine 20 MG CAPSULE PO SCH (09:00)
[2021-12-08] MEDS ORDERED: BuPROPion XL (24 HR) 150 MG TABLET PO SCH (09:00)
[2021-12-08] MEDS ORDERED: *HR* HYDROmorphone PF 0.5 MG/0.5 ML SYRINGE IVP PRN ×3 (09:08→13:43)
[2021-12-08] MEDS ORDERED: *HR* FentaNYL (PF) 100 MCG/2 ML VIAL IVP PRN (09:08)
[2021-12-08] MEDS: *HR* Buprenorphine HCl 8 MG TAB.SUBL SL SCH ×2 (10:14→22:02)
[2021-12-08] MEDS: Nicotine 21 MG PATCH.TD24 TD SCH (10:15)
[2021-12-08] MEDS: Gabapentin 300 MG CAPSULE PO SCH ×2 (10:15→22:02)
[2021-12-08] MEDS ORDERED: Clindamycin 900 MG/50 ML 900 MG/50 ML IV.SOLN IVPB ONE (10:55)
[2021-12-08] MEDS ORDERED: Famotidine 20 MG/2 ML VIAL IVP ONE (10:57)
[2021-12-08] MEDS ORDERED: Albuterol 2.5 MG/3 ML NEBULIZER IH ONE (10:57)
[2021-12-08] MEDS ORDERED: Acetaminophen IV 1,000 MG/100 ML BAG IVPB ONE (10:57)
[2021-12-08] MEDS ORDERED: Ringers Solution, Lactated 1,000 ML IVC SCH ×2 (11:00→16:35)
[2021-12-08] MEDS ORDERED: *HR* Propofol 200 MG/20 ML VIAL IVP ONE (11:09)
[2021-12-08] MEDS ORDERED: Lidocaine -MPF 2% 2 ML VIAL ONE (11:09)
[2021-12-08] MEDS ORDERED: *HR* Midazolam HCl 2 MG/2 ML VIAL ONE (11:09)
[2021-12-08] MEDS ORDERED: *HR* FentaNYL (PF) 100 MCG/2 ML VIAL ONE ×3 (11:09→12:26)
[2021-12-08] MEDS ORDERED: *HR* Succinylcholine 200 MG/10 ML VIAL IVP ONE (11:11)
[2021-12-08] MEDS ORDERED: *HR* HYDROmorphone (PF) 1 MG/ML SYRINGE IVP ONE ×2 (11:12→16:35)
[2021-12-08] MEDS ORDERED: Ketamine HCL *QUVA* 50mg (1mL) SYRINGE ONE (11:14)
[2021-12-08] MEDS ORDERED: dexmedeTOMIDine in 0.9 % NaCL 80 MCG/20 ML MLS ONE (11:15)
[2021-12-08] MEDS ORDERED: Ondansetron 4 MG/2 ML VIAL ONE (12:31)
[2021-12-08] MEDS ORDERED: tiZANidine 4 MG TABLET PO SCH ×2 (13:31→13:45)
[2021-12-08] MEDS ORDERED: Pregabalin 75 MG CAPSULE PO ONE ×2 (13:32→13:45)
[2021-12-08] MEDS ORDERED: MOM Conc 10 ML UD.LIQ PO PRN (16:35)
[2021-12-08] MEDS ORDERED: Gadolinium Contrast Agent (WT Based) IV PRN ×2 (16:35)
[2021-12-08] MEDS ORDERED: Naloxone 0.4 MG/ML INJ IVP PRN (16:35)
[2021-12-08] MEDS ORDERED: *HR* HYDROmorphone (PF) 1 MG/ML SYRINGE IVP PRN (16:35)
[2021-12-08] MEDS ORDERED: Melatonin 3 MG TABLET PO PRN (16:35)
[2021-12-08] MEDS ORDERED: Clindamycin 900 MG/50 ML 900 MG/50 ML IV.SOLN IVPB SCH (16:35)
[2021-12-08] MEDS ORDERED: Ondansetron 4 MG/2 ML VIAL IVP PRN (16:35)
[2021-12-08 17:08] LABS: Basophils % 0.3 %; Eosinophils % 0.1 %; Hematocrit 37.6 % (35.3-44.9); Hemoglobin 12.5 g/dL (11.5-15.4); Immature Granulocytes % 0.7 % (0-4); Lymphocytes # 0.9 K/mcL (0.6-4.6); Mean Corpuscular HGB Conc 33.2 g/dL (31.6-35.5); Mean Corpuscular Hemoglobin 30.8 pg (28.0-33.3); Mean Corpuscular Volume 92.6 fL (83.0-100.0); Mean Platelet Volume 9.3 fL (9.4-12.4); Monocytes # 0.1 K/mcL (0.0-1.3); Platelet Count 218 K/mcL (140-400); Red Blood Count 4.06 M/mcL (3.82-4.97); Red Cell Distribution Width 13.6 % (11.5-14.5); Segmented Neutrophils % 89.9 %; White Blood Count 11.1 K/mcL (4.3-11.1)
[2021-12-08 17:15] LABS: INR 1.1; Prothrombin Time 12.1 Seconds (9.4-12.1)
[2021-12-08 17:24] LABS: BUN/Creatinine Ratio 17 (6-26); Blood Urea Nitrogen 16 mg/dL (6-20); C-Reactive Protein 6 mg/L (Less than 10); Calcium 9.3 mg/dL (8.6-10.3); Carbon Dioxide 22 mEq/L (23-29); Chloride 106 mEq/L (98-107); Glucose 189 mg/dL (70-105); Magnesium 1.7 mg/dL (1.6-2.6); Osmolality,Calculated 286 (280-300); Potassium 4.3 mEq/L (3.5-5.1); Sodium 135 mEq/L (136-145); eGFR For African Americans > 60 (> 60); eGFR For Non-African Americans > 60 (> 60)
[2021-12-08] MEDS: *HR* HYDROcodone/Acet 5/325 mg TABLET PO PRN (19:45)
[2021-12-08] MEDS ORDERED: Mirtazapine 15 MG TABLET PO SCH (21:00)
[2021-12-09] MEDS: Clindamycin 900 MG/50 ML 900 MG/50 ML IV.SOLN IVPB SCH ×2 (00:10→08:17)
[2021-12-09 06:46] VITALS: BP 118/81; PULSE 97; TEMP 97.9; O2SAT 96
[2021-12-09] MEDS: Gabapentin 300 MG CAPSULE PO SCH (08:16)
[2021-12-09] MEDS: *HR* HYDROcodone/Acet 5/325 mg TABLET PO PRN (08:16)
[2021-12-09] MEDS: *HR* Buprenorphine HCl 8 MG TAB.SUBL SL SCH (08:16)
[2021-12-09] MEDS ORDERED: ARIPiprazole 10 MG TABLET PO SCH (09:00)
[2021-12-09] MEDS ORDERED: BuPROPion XL (24 HR) 150 MG TABLET PO SCH (09:00)
[2021-12-09] MEDS ORDERED: Aspirin Enteric Coated 325 MG Tablet PO SCH (09:00)
[2021-12-09] MEDS ORDERED: Nicotine 21 MG PATCH.TD24 TD SCH (09:00)
[2021-12-09] MEDS ORDERED: FLUoxetine 20 MG CAPSULE PO SCH ×2 (09:00)
[2021-12-09] MEDS ORDERED: lisinopriL 20 MG TABLET PO SCH (09:00)
== END 2021-12-09 12:05 | disposition home health service (06) | DRG 308 ==
LOC: EMEROOARM 21:57 → 4WAOSI 21:57 → SUATTDRO 12-07 13:09 → 4WAOSI 12-07 14:14
PROVIDERS: ADMIT Student in an Organized Health Care Education/Training Program; ATTEND Pharmacist